=== PATIENT | female | born 1975 | race African-American/Black ===

== ENCOUNTER 2021-02-05 09:56 | Inpatient (IN) | payer MEDICAID, OTHER ==
[~2021-02-05] VITALS: Ht 165.1 cm; Wt 166.1 kg
[2021-02-05] VITALS (23 sets, daily range): BP systolic 105–148; BP diastolic 56–84
[2021-02-05] MEDS ORDERED: VANCOMYCIN 1 G PREMIX 200 ML IV ONE (10:00)
[2021-02-05] MEDS ORDERED: PIPERACILLIN/TAZ 3.375G PREMIX 50 ML IV ONE (10:00)
[2021-02-05] MEDS ORDERED: METHYLPREDNISOLONE SOD SUCC 125 MG/2 ML VIAL IV ONE (10:00)
[2021-02-05] MEDS ORDERED: ACETAMINOPHEN 650MG SUPP PR STA (10:00)
[2021-02-05] MEDS ORDERED: SODIUM CHLORIDE 0.9% 1,000 ML IV ONE (10:00)
[2021-02-05] MEDS ORDERED: IPRATROPIUM BROMIDE (0.02%) 0.5MG/2.5ML NEB HHN STA (10:00)
[2021-02-05] MEDS ORDERED: ALBUTEROL (0.083%) 2.5MG/3ML NEB ONE (10:11)
[2021-02-05] MEDS ORDERED: IPRATROPIUM BROMIDE (0.02%) 0.5MG/2.5ML NEB ONE (10:12)
[2021-02-05] MEDS: ALBUTEROL (0.083%) 2.5MG/3ML NEB HHN SCH ×3 (10:19→11:00)
[2021-02-05 10:51] LABS: BASOPHILS % 0.2 % (0.0-2.0); HEMATOCRIT. 37.8 % (36.0-48.0); HEMOGLOBIN. 12.2 g/dL (12.0-16.0); LYMPHOCYTES % 12.7 % (20.0-50.0); MEAN CORPUSCULAR HEMOGLOBIN 25.8 pg (28.0-32.0); MEAN CORPUSCULAR VOLUME 80.2 fL (81.0-99.0); MEAN PLATELET VOLUME 9.1 fl (7.4-10.4); MONOCYTES % 4.7 % (2.0-8.0); NEUTROPHILS % 82.4 % (40.0-76.0); PLATELET 187 x1000/uL (130-400); RED BLOOD CELL COUNT 4.72 mill/uL (4.2-5.4)
[2021-02-05 10:58] LABS: CHLORIDE 102 mEq/L (98-107)
[2021-02-05] MEDS ORDERED: ALBUTEROL 6.7GM HFA INHALER ORI PRN (11:45)
[2021-02-05] MEDS ORDERED: ONDANSETRON HCL 4MG/2ML INJ IV PRN (11:45)
[2021-02-05] MEDS ORDERED: CEFTRIAXONE 1 G PREMIX 50 ML IV SCH (12:00)
[2021-02-05] MEDS ORDERED: AZITHROMYCIN 500MG/250ML 250 ML IV SCH (12:00)
[2021-02-05] MEDS: ENOXAPARIN 30MG/0.3ML SYR SUBCUT SCH ×2 (12:00→21:51)
[2021-02-05 13:09] LABS: HCG SCREEN NEGATIVE
[2021-02-05 15:50] LABS: BG BASE EXCESS 2.1 mmol/L (-2.0-2.0); BG CARBOXYHEMOGLOBIN 0.3 % (0.5-1.5); BG DEOXYHEMOGLOBIN 10.6 % (0.0-5.0); BG FRACTION INSPIRED OXYGEN 100; BG HCO3 ACT 25.6 mmol/L (22.0-26.0); BG METHEMOGLOBIN 0.4 % (0.0-1.5); BG OXYGEN SATURATION 89.3 % (92.0-98.5); BG OXYHEMOGLOBIN 88.7 % (94.0-97.0); BG PH 7.469 (7.350-7.450); BG SAMPLE SITE RIGHT RADIAL; BG TOTAL HEMOGLOBIN 12.1 g/dL (12.0-18.0); BG VENT MODE MASK - BIPAP
[2021-02-05] MEDS ORDERED: ERGOCALCIFEROL 50000UNITS CAPSULE PO SCH (16:00)
[2021-02-05] MEDS ORDERED: PHEN100C4 PO (18:25)
[2021-02-05] MEDS: HYDROCODONE/ACETAMINOPHEN 5/325MG TABLET PO PRN (18:57)
[2021-02-05 21:13] LABS: BG BASE EXCESS 2.1 mmol/L (-2.0-2.0); BG CARBOXYHEMOGLOBIN 0.3 % (0.5-1.5); BG DEOXYHEMOGLOBIN 18.8 % (0.0-5.0); BG FRACTION INSPIRED OXYGEN 100; BG HCO3 ACT 25.9 mmol/L (22.0-26.0); BG METHEMOGLOBIN 0.4 % (0.0-1.5); BG OXYGEN SATURATION 81.1 % (92.0-98.5); BG OXYHEMOGLOBIN 80.5 % (94.0-97.0); BG PCO2 37.3 mmHg (35.0-45.0); BG PH 7.459 (7.350-7.450); BG PO2 45.4 mmHg (75.0-100.0); BG SAMPLE SITE RIGHT RADIAL; BG TOTAL HEMOGLOBIN 11.4 g/dL (12.0-18.0); BG VENT MODE MASK - BIPAP
[2021-02-05] MEDS: ASCORBIC ACID 500 MG TABLET PO SCH (21:52)
[2021-02-06] VITALS (54 sets, daily range): BP systolic 99–165; BP diastolic 50–108
[2021-02-06] MEDS: ACETAMINOPHEN 325MG TABLET PO PRN ×2 (06:18→13:22)
[2021-02-06] MEDS: ENOXAPARIN 30MG/0.3ML SYR SUBCUT SCH (08:04)
[2021-02-06] MEDS: ASCORBIC ACID 500 MG TABLET PO SCH ×2 (08:04→22:14)
[2021-02-06] MEDS: DEXAMETHASONE 10 MG/ML VIAL IV SCH (08:05)
[2021-02-06] MEDS: HYDROCODONE/ACETAMINOPHEN 5/325MG TABLET PO PRN ×2 (13:22→22:14)
[2021-02-06] MEDS: AZITHROMYCIN 500MG in DEXTROSE 5% WATER 250ML IV SCH (13:22)
[2021-02-06 13:24] LABS: *COCAINE SCREEN URINE NEGATIVE (NEGATIVE)
[2021-02-06 13:25] LABS: *AMPHETAMINES SCREEN URINE NEGATIVE (NEGATIVE); *BARBITURATES SCREEN URINE NEGATIVE (NEGATIVE); *BENZODIAZEPINES SCREEN URINE NEGATIVE (NEGATIVE)
[2021-02-06 13:27] LABS: METHADONE URINE SCREEN NEGATIVE (NEGATIVE)
[2021-02-06 13:29] LABS: OPIATES URINE SCREEN NEGATIVE (NEGATIVE); PHENCYCLIDINE URINE SCREEN NEGATIVE (NEGATIVE)
[2021-02-06 13:31] LABS: CANNABINOID URINE SCREEN NEGATIVE (NEGATIVE)
[2021-02-06] MEDS ORDERED: LIDOCAINE HCL 1% 10 MG/ML 10ML VIAL ONE (14:33)
[2021-02-06] MEDS ORDERED: PHENYTOIN SODIUM EXTENDED 100MG CAPSULE PO SCH (15:30)
[2021-02-06] MEDS: CEFTRIAXONE 1,000 MG in DEXTROSE 5% WATER 50 ML IV SCH (15:38)
[2021-02-06] MEDS: PHENYTOIN SODIUM EXTENDED 100MG CAPSULE PO SCH ×2 (16:50→22:14)
[2021-02-06 17:40] LABS: BG BASE EXCESS 3.7 mmol/L (-2.0-2.0); BG CARBOXYHEMOGLOBIN 0.2 % (0.5-1.5); BG DEOXYHEMOGLOBIN 23.8 % (0.0-5.0); BG FRACTION INSPIRED OXYGEN 100; BG HCO3 ACT 27.2 mmol/L (22.0-26.0); BG METHEMOGLOBIN 0.4 % (0.0-1.5); BG OXYGEN SATURATION 76.1 % (92.0-98.5); BG OXYHEMOGLOBIN 75.6 % (94.0-97.0); BG PCO2 37.6 mmHg (35.0-45.0); BG PH 7.478 (7.350-7.450); BG PO2 39.6 mmHg (75.0-100.0); BG SAMPLE SITE RIGHT RADIAL; BG TOTAL HEMOGLOBIN 12.3 g/dL (12.0-18.0); BG VENT MODE MASK - BIPAP
[2021-02-06] MEDS: ENOXAPARIN 40MG/0.4ML SYR SUBCUT SCH (22:14)
[2021-02-07] VITALS (23 sets, daily range): BP systolic 124–160; BP diastolic 49–93
[2021-02-07 06:21] LABS: CHLORIDE 101 mEq/L (98-107)
[2021-02-07] MEDS: PHENYTOIN SODIUM EXTENDED 100MG CAPSULE PO SCH ×2 (08:47→21:51)
[2021-02-07] MEDS: ASCORBIC ACID 500 MG TABLET PO SCH ×2 (08:47→21:51)
[2021-02-07] MEDS: ENOXAPARIN 40MG/0.4ML SYR SUBCUT SCH ×2 (08:48→21:51)
[2021-02-07] MEDS: DEXAMETHASONE 10 MG/ML VIAL IV SCH (08:48)
[2021-02-07] MEDS ORDERED: ERGOCALCIFEROL 50000UNITS CAPSULE PO SCH (09:00)
[2021-02-07 09:15] LABS: BASOPHILS % 0.3 % (0.0-2.0); HEMOGLOBIN. 12.8 g/dL (12.0-16.0); LYMPHOCYTES % 10.3 % (20.0-50.0); MEAN CORPUSCULAR HEMOGLOBIN 25.3 pg (28.0-32.0); MEAN CORPUSCULAR VOLUME 79.2 fL (81.0-99.0); MEAN PLATELET VOLUME 8.3 fl (7.4-10.4); NEUTROPHILS % 83.4 % (40.0-76.0); RED BLOOD CELL COUNT 5.05 mill/uL (4.2-5.4); RED CELL DISTRIBUTION WIDTH 16.8 % (11.6-14.6)
[2021-02-07 09:21] LABS: PLATELET 111 x1000/uL (130-400)
[2021-02-07] MEDS: AZITHROMYCIN 500MG in DEXTROSE 5% WATER 250ML IV SCH (13:53)
[2021-02-07] MEDS: CEFTRIAXONE 1,000 MG in DEXTROSE 5% WATER 50 ML IV SCH (15:00)
[2021-02-07] MEDS: HYDROCODONE/ACETAMINOPHEN 5/325MG TABLET PO PRN ×2 (15:28→23:47)
[2021-02-08] VITALS (22 sets, daily range): BP systolic 0–158; BP diastolic 0–119
[2021-02-08 06:06] LABS: HEMATOCRIT. 37.6 % (36.0-48.0); MEAN CORPUSCULAR HEMOGLOBIN 25.2 pg (28.0-32.0); MEAN CORPUSCULAR VOLUME 79.1 fL (81.0-99.0); MEAN PLATELET VOLUME 9.2 fl (7.4-10.4); PLATELET 92 x1000/uL (130-400); RED BLOOD CELL COUNT 4.75 mill/uL (4.2-5.4); RED CELL DISTRIBUTION WIDTH 16.8 % (11.6-14.6)
[2021-02-08 06:10] LABS: CHLORIDE 96 mEq/L (98-107)
[2021-02-08] MEDS ORDERED: FENTANYL CITRATE/PF 2,500 MCG in SODIUM CHLORIDE 0.9% 200 ML IV PRN (06:45)
[2021-02-08] MEDS ORDERED: NOREPINEPHRINE 8 MG in DEXT 5% WATER 242 ML IV PRN (06:45)
[2021-02-08] MEDS ORDERED: MIDAZOLAM HCL 100 MG in SODIUM CHLORIDE 0.9% 80 ML IV PRN (06:45)
[2021-02-08] MEDS ORDERED: ATROPINE SULFATE 1MG/10ML SYR ONE (07:41)
[2021-02-08] MEDS ORDERED: SUCCINYLCHOLINE CHLORIDE 200MG/10ML IV ONE (07:41)
[2021-02-08] MEDS ORDERED: ETOMIDATE 2MG/ML 10ML VIAL IV ONE (07:41)
[2021-02-08] MEDS ORDERED: VECURONIUM BROMIDE 10 MG/VIAL IV ONE (07:41)
[2021-02-08] MEDS: PROPOFOL 10MG/ML 100ML 100 ML IV PRN ×2 (07:44→09:37)
[2021-02-08] MEDS ORDERED: PHENYLEPHRINE 100 MG in DEXT 5% WATER 240 ML IV PRN (09:45)
[2021-02-08 09:57] LABS: BG BASE EXCESS -8.4 mmol/L (-2.0-2.0); BG CARBOXYHEMOGLOBIN 0.3 % (0.5-1.5); BG DEOXYHEMOGLOBIN 86.1 % (0.0-5.0); BG FRACTION INSPIRED OXYGEN 100; BG HCO3 ACT 23.3 mmol/L (22.0-26.0); BG METHEMOGLOBIN 2.3 % (0.0-1.5); BG OXYHEMOGLOBIN 11.3 % (94.0-97.0); BG PCO2 85.1 mmHg (35.0-45.0); BG PH 7.055 (7.350-7.450); BG PO2 < 30.3 mmHg (75.0-100.0); BG TOTAL HEMOGLOBIN 11.9 g/dL (12.0-18.0); BG VENT MODE VENT - PRVC
[2021-02-08] MEDS ORDERED: NOREPINEPHRINE 32 MG in DEXT 5% WATER 218 ML IV PRN (10:00)
[2021-02-08] MEDS ORDERED: NALOXONE HCL 0.4MG/ML VIAL IV PRN (10:15)
[2021-02-08] MEDS ORDERED: EPINEPHRINE 10 MG in SODIUM CHLORIDE 0.9% 240 ML IV PRN (10:45)
[2021-02-08 13:05] LABS: PLATELET ESTIMATE DECREASED
== END 2021-02-08 11:19 | DRG 720 ==
LOC: EDBD 10:04 → ER 10:04 → MICUSO 11:04 → ENRESERV 15:45
PROVIDERS: ADMIT Internal Medicine; ATTEND Internal Medicine
PROC: 5A09457 Assistance with Respiratory Ventilation, 24-96 Consecutive Hours, Continuous Positive Airway Pressure (ICD-10-PCS; 2021-02-05)
PROC: 05H533Z Insertion of Infusion Device into Right Subclavian Vein, Percutaneous Approach (ICD-10-PCS; 2021-02-06)
PROC: B546ZZA Ultrasonography of Right Subclavian Vein, Guidance (ICD-10-PCS; 2021-02-06)
PROC: 5A1935Z Respiratory Ventilation, Less than 24 Consecutive Hours (ICD-10-PCS; principal; 2021-02-08)
PROC: 5A12012 Performance of Cardiac Output, Single, Manual (ICD-10-PCS; 2021-02-08)
PROC: 0BH17EZ Insertion of Endotracheal Airway into Trachea, Via Natural or Artificial Opening (ICD-10-PCS; 2021-02-08)
DX: A41.89 Other specified sepsis (principal); J12.82 Pneumonia due to coronavirus disease 2019; E43 Unspecified severe protein-calorie malnutrition; U07.1 COVID-19; J80 Acute respiratory distress syndrome; G40.909 Epilepsy, unspecified, not intractable, without status epilepticus; E66.01 Morbid (severe) obesity due to excess calories; R04.2 Hemoptysis; Z87.01 Personal history of pneumonia (recurrent); Z68.44 Body mass index [BMI] 60.0-69.9, adult
CPT/HCPCS: 36415; 36600; 71045; 76937; 80048; 80053; 80305; 82375; 82728; 82805; 82962; 83605; 83615; 83880; 84145; 84484; 84703; 85025; 86140; 87426; 87804; 93005; 93970; 94002; 94660; 99291; C1725; J0330; J0456; J0461; J0696; J1100; J1650; J2250; J2543; J2704; J2930; J3010; J3370; J3490; J7030; J7050; J7060; A4315